=== PATIENT | female | born 1990 | race Caucasian/White ===

== ENCOUNTER 2018-10-04 00:20 | Emergency (ER) | payer OTHER ==
[~2018-10-04] VITALS: Ht 152.4 cm; Wt 79.4 kg
[2018-10-04 00:20] VITALS: BP 133/86
[2018-10-04 01:00] VITALS: BP 138/82
== END 2018-10-04 01:00 ==
LOC: MED 00:20
DX: Z02.89 Encounter for other administrative examinations (principal); V89.2XXA Person injured in unspecified motor-vehicle accident, traffic, initial encounter; Y93.89 Activity, other specified; Y92.89 Other specified places as the place of occurrence of the external cause; Y99.8 Other external cause status
CPT/HCPCS: 99283